=== PATIENT | female | born 1940 | race Caucasian/White ===

== ENCOUNTER → 2017-01-13 | Outpatient (CLI) | payer MEDICARE, OTHER ==
[2017-01-13 14:16] LABS: ABSOLUTE EOSINOPHILS # (AUTO) 0.1 10^3/uL (0.0-0.6); ABSOLUTE LYMPHOCYTES (AUTO) 1.8 10^3/uL (0.5-4.7); ABSOLUTE MONOCYTES (AUTO) 0.8 10^3/uL (0.1-1.4); BASOPHILS % (AUTO) 0.7 % (0-2); EOSINOPHILS % (AUTO) 1.2 % (0-6); HEMATOCRIT 42.2 % (36.0-47.0); HEMOGLOBIN 14.2 g/dL (12.0-15.5); HGB HCT DIFFERENCE 0.4; LYMPHOCYTES % (AUTO) 26.6 % (13-45); MEAN CORPUSCULAR HEMOGLOBIN 32.8 pg (27.0-33.4); MEAN CORPUSCULAR HGB CONC 33.6 g/dL (32.0-36.0); MEAN CORPUSCULAR VOLUME 98 fl (80-97); MONOCYTES % (AUTO) 11.4 % (3-13); RED BLOOD COUNT 4.32 10^6/uL (3.72-5.28); RED CELL DISTRIBUTION WIDTH 13.5 % (11.5-14.0); SEGMENTED NEUTROPHILS % (AUTO) 60.1 % (42-78); WHITE BLOOD COUNT 6.6 10^3/uL (4.0-10.5)
[2017-01-13 14:34] LABS: ANION GAP 10 (5-19); BLOOD UREA NITROGEN 15 mg/dL (7-20); CALCIUM 9.5 mg/dL (8.4-10.2); CARBON DIOXIDE 26 mmol/L (22-30); CHLORIDE 103 mmol/L (98-107); CREATININE RESULT 0.96 mg/dL (0.52-1.25); GLUCOSE 107 mg/dL (75-110); MAGNESIUM 1.7 mg/dL (1.6-2.3); POTASSIUM 4.4 mmol/L (3.6-5.0); SODIUM 138.7 mmol/L (137-145)
[2017-01-13 14:47] LABS: PROTHROMBIN TIME 16.2 SEC (11.4-15.4)
== END ==
LOC: OD 13:46
PROVIDERS: ATTEND Internal Medicine Clinical Cardiac Electrophysiology
DX: R06.02 Shortness of breath (principal)
CPT/HCPCS: 36415; 80048; 83735; 85025; 85610

== ENCOUNTER → 2017-04-27 | Outpatient (CLI) | payer MEDICARE, OTHER ==
[~2017-04-27] MED LIST: AMINOPHYLLINE INJ/PF 250 MG/10 ML SDV IV ONE; REGADENOSON INJ 0.4 MG/5 ML DISP.SYRIN IV ONE
--- NOTE | 2017-04-27 20:26 | DRAGON STRESS TEST REPORT ---
INTRAVENOUS LEXISCAN CARDIOLITE STRESS TEST USING SINGLE PHOTON EMMISION COMPUTERIZED TOMOGRAPHIC. DATE OF PROCEDURE: April 27, 2017 INDICATION : Atrial fibrillation CARDIAC RISK FACTORS: Hypertension RESTING EKG: Sinus rhythm, no baseline ST segment changes noted. STRESS EKG: No significant changes noted with LexiScan bolus. Increased APCs were noted. REASON FOR TERMINATION: Protocol. PROCEDURE REPORT: Baseline heart rate 66 beats per minute with blood pressure of 115/60. Patient had no significant complaints. Heart rate at 2 minutes post bolus 70 with a blood pressure of 128/56. 3 minutes post bolus heart rate 71 with blood pressure of 118/61. No significant EKG changes were noted. Patient had no significant complaints during the procedure or postprocedure. Patient injected with Aminophyllin 75 mg at 3 minutes or later after Lexiscan bolus. CONCLUSIONS: Normal EKG and hemodynamic response to IV LexiScan. NUCLEAR DATA: At rest the patient was given 13.73 millicuries of technetium 99 sestamibi injected intravenously. As per protocol rest gated SPECT images were obtained. Subsequently the patient was given intravenous LexiScan at a dose of 0.4 mg in 5 mL intravenously, followed by flush with normal saline. Subsequently the stress dose of 44.5 millicuries of technetium 99 sestamibi was injected intravenously. As per protocol stress gated images were obtained. NUCLEAR INTERPRETATION: Both raw and processed data were used for interpretation. Visual, qualitative, computer-generated quantitative data was used. There was good myocardial uptake of technetium compound. Motion artifact and soft tissue attenuations were noted. Increased visceral uptake was noted. No definitive areas of transient perfusion defect noted. No definitive areas of fixed perfusion defect or scars noted. EKG gated imaging showed LV EF at 64 %, rest and stress gated EF similar visually. T. I D. ratio was 1.28. Lung heart ratio noted to be within normal limits 0.30. No significant extracardiac and abnormal radiotracer activities were noted. IMPRESSION: Also refer to comments under nuclear interpretation. Also test results needs to be interpreted in the context of pretest probability. 1. There is no definitive scintigraphic evidence of LexiScan induced myocardial ischemia. 2. There is no definitive scintigraphic evidence of myocardial infarction/scar. 3. EKG gated imaging shows left ejection fraction of approximately 64 %. 4. Borderline to mild transient ischemic dilatation noted. Clinical significant in the absence of perfusion defect is not known. Recent literature review suggests no significant increased cardiovascular event rate but older literature suggests that this could indicate balanced ischemia. 5. Clinical correlation requested as occasionally single vessel disease or balanced ischemia could be missed. In approximately 10% of the cases Lexiscan may not cause adequate vasodilatory stress. RECOMMENDATIONS: Aggressive risk factor modification, medical therapy. Clinical correlation with echocardiogram derived ejection fraction. Inability to exercise by itself can lead to increased cardiovascular event risks. Deanne Browne M.D., [facility] [employer] relay assembler, Board certified in cardiovascular diseases, Nuclear cardiology, Echocardiography Cardiac CT and cardiac MRI Ph. [phone] [facility]
== END ==
LOC: RAD 07:52
PROVIDERS: ATTEND Internal Medicine Clinical Cardiac Electrophysiology
DX: I48.1 Persistent atrial fibrillation (principal); I10 Essential (primary) hypertension
CPT/HCPCS: 93017; 78452; A9500; J2785; J0280; Q9969

== ENCOUNTER → 2017-11-09 | Outpatient (CLI) | payer MEDICARE, OTHER ==
[2017-11-09 12:00] LABS: BLOOD UREA NITROGEN 14 mg/dL (7-20)
== END ==
LOC: OD 10:23
PROVIDERS: ATTEND Internal Medicine
DX: Z01.812 Encounter for preprocedural laboratory examination (principal); R10.31 Right lower quadrant pain
CPT/HCPCS: 36415; 82565; 84520

== ENCOUNTER → 2017-11-10 | Outpatient (CLI) | payer MEDICARE, OTHER ==
--- NOTE | 2017-11-10 14:52 | RADIOLOGY REPORT (SQ) ---
EXAM DESCRIPTION: CT ABD/PELVIS WITH IV ONLY COMPLETED DATE/TIME: 11/10/2017 2:40 pm REASON FOR STUDY: RLQ PAIN (R10.31) R10.31 RIGHT LOWER QUADRANT PAIN COMPARISON: None. TECHNIQUE: CT scan of the abdomen and pelvis performed using helical scanning technique with dynamic intravenous contrast injection. No oral contrast. Images reviewed with lung, soft tissue, and bone windows. Reconstructed coronal and sagittal MPR images reviewed. Delayed images for evaluation of the urinary system also acquired. All images stored on PACS. All CT scanners at this facility use dose modulation, iterative reconstruction, and/or weight based d osing when appropriate to reduce radiation dose to as low as reasonably achievable (ALARA). [facility]: Dose Right [facility]: CareDose [facility]: Dose Right [facility]: Teradose 4D [facility]: Dsg.nr CONTRAST TYPE AND DOSE: contrast/concentration: Isovue 370.00 mg/ml; Total Contrast Delivered: 99.0 ml; Total Saline Delivered: 72.0 ml RENAL FUNCTION: Creatinine 0.86 RADIATION DOSE: CT Rad equipment meets quality standard of care and radiation dose reduction techniq ues were employed. CTDIvol: 13.1 - 13.4 mGy. DLP: 1405 mGy-cm.. LIMITATIONS: Hip replacements cause streak artifact, largely obscuring the pelvis. FINDINGS: LOWER CHEST: No significant findings. No nodules or infiltrates. LIVER: Normal size. No masses. No dilated ducts. SPLEEN: Normal size. No focal lesions. PANCREAS: No masses. No significant calcifications. No adjacent inflammation or peripancreatic fluid collections. Pancreatic duct not dilated. GALLBLADDER: No identified stones by CT criteria. No inflammatory changes to suggest cholecystitis. ADRENAL GLANDS: No significant masses or asymmetry. RIGHT KIDNEY AND URETER: No solid masses. No significant calcification. No hydronephrosis or hydroure ter. LEFT KIDNEY AND URETER: No solid masses. No significant calcification. No hydronephrosis or hydrouret er. AORTA AND VESSELS: Normal caliber aorta with patent major arterial branches. No venous clot. RETROPERITONEUM: Several subcentimeter upper retroperitoneal lymph nodes. No enlarged nodes. BOWEL AND PERITONEAL CAVITY: Diverticulosis throughout the descending colon and sigmoid colon. No ac tive inflammatory changes as assessed. Limited evaluation of the pelvis, as described below. No asc ites or abnormal gas detected. APPENDIX: Normal. PELVIS: Bilateral hip replacements with associated dense streak artifact largely obscures the pelvis. Bladder as a result is not seen. A portion of the sigmoid colon is not seen. No gross pelvic mass or fluid. ABDOMINAL WALL: No masses. No hernias. BONES: No significant or acute findings. OTHER: No other significant finding. IMPRESSION: 1. Limited evaluation of the pelvis. 2. No acute or suspicious abdominopelvic abnorma lity. No evidence of urinary obstruction or inflammatory bowel disease. Note is made of fairly exte nsive distal colonic diverticular disease. TECHNICAL DOCUMENTATION: JOB ID: [id number] Quality ID # [id number]: Final reports with documentation of one or more dose reduction techniques (e.g., Au tomated exposure control, adjustment of the mA and/or kV according to patient size, use of iterative reconstruction technique) 2010 [employer]- All Rights Reserved
== END ==
LOC: RAD 13:57
PROVIDERS: ATTEND Internal Medicine
DX: R10.31 Right lower quadrant pain (principal)
CPT/HCPCS: 74177

== ENCOUNTER → 2018-05-25 | Outpatient (CLI) | payer MEDICARE, OTHER ==
[2018-05-25 08:17] LABS: ABSOLUTE EOSINOPHILS # (AUTO) 0.2 10^3/uL (0.0-0.6); ABSOLUTE LYMPHOCYTES (AUTO) 1.9 10^3/uL (0.5-4.7); ABSOLUTE MONOCYTES (AUTO) 0.7 10^3/uL (0.1-1.4); ABSOLUTE NEUT (AUTO) 3.6 10^3/uL (1.7-8.2); BASOPHILS % (AUTO) 0.6 % (0-2); EOSINOPHILS % (AUTO) 2.5 % (0-6); HEMATOCRIT 40.6 % (36.0-47.0); LYMPHOCYTES % (AUTO) 29.8 % (13-45); MEAN CORPUSCULAR HEMOGLOBIN 33.2 pg (27.0-33.4); MEAN CORPUSCULAR HGB CONC 34.5 g/dL (32.0-36.0); MEAN CORPUSCULAR VOLUME 96 fl (80-97); MONOCYTES % (AUTO) 10.3 % (3-13); PLATELET COUNT 190 10^3/uL (150-450); RED BLOOD COUNT 4.22 10^6/uL (3.72-5.28); RED CELL DISTRIBUTION WIDTH 13.2 % (11.5-14.0); SEGMENTED NEUTROPHILS % (AUTO) 56.8 % (42-78); TOTAL CELLS COUNTED % (AUTO) 100 %; WHITE BLOOD COUNT 6.4 10^3/uL (4.0-10.5)
[2018-05-25 08:43] LABS: ALANINE AMINOTRANSFERASE 27 U/L (9-52); ALBUMIN 4.2 g/dL (3.5-5.0); ALKALINE PHOSPHATASE 43 U/L (38-126); ANION GAP 11 (5-19); ASPARTATE AMINO TRANSFERASE 26 U/L (14-36); BILIRUBIN,DIRECT 0.3 mg/dL (0.0-0.4); BILIRUBIN,TOTAL 1.2 mg/dL (0.2-1.3); BLOOD UREA NITROGEN 10 mg/dL (7-20); CALCIUM 9.2 mg/dL (8.4-10.2); CARBON DIOXIDE 27 mmol/L (22-30); CHLORIDE 106 mmol/L (98-107); CHOLESTEROL 143.14 mg/dL (0-200); GLUCOSE 88 mg/dL (75-110); POTASSIUM 4.7 mmol/L (3.6-5.0); TOTAL PROTEIN 6.4 g/dL (6.3-8.2); TRIGLYCERIDES 76 mg/dL (<150)
[2018-05-25 09:39] LABS: DIRECT LDL < 30 mg/dL (<100)
== END ==
LOC: OD 07:11
PROVIDERS: ATTEND Internal Medicine
DX: I25.10 Atherosclerotic heart disease of native coronary artery without angina pectoris (principal); E78.5 Hyperlipidemia, unspecified; E53.8 Deficiency of other specified B group vitamins; E03.9 Hypothyroidism, unspecified; I48.91 Unspecified atrial fibrillation
CPT/HCPCS: 36415; 80053; 80061; 82607; 84443; 85025; 86255

== ENCOUNTER → 2019-02-04 | Outpatient (CLI) | payer MEDICARE, OTHER | LOC: OD 10:15 | PROVIDERS: ATTEND Internal Medicine | DX: E03.9 Hypothyroidism, unspecified (principal); E53.8 Deficiency of other specified B group vitamins; E55.9 Vitamin D deficiency, unspecified | CPT/HCPCS: 36415; 82607; 84443 ==

== ENCOUNTER → 2019-03-07 | Day surgery (SDC) | payer MEDICARE, OTHER ==
[~2019-03-07] MED LIST changes: -AMINOPHYLLINE INJ/PF 250 MG/10 ML SDV IV ONE; +BUPIVACAINE HCL 0.5 % INJ/PF 30 ML SDV ONE; +LIDOCAINE 1% INJ-PF (10 MG/ML) 30 ML SDV ONE; -REGADENOSON INJ 0.4 MG/5 ML DISP.SYRIN IV ONE
--- NOTE | 2019-03-07 12:22 | Operative Report ---
PREOPERATIVE DIAGNOSIS: Spondylolisis without myopathy or radiculopathy M47.818// Lumbar Sacral Spondylolisis without myopathy or radiculopathy M47.817 POSTOPERATIVE DIAGNOSIS:Spondylolisis without myopathy or radiculopathy M47.818// Lumbar Sacral Spondylolisis without myopathy or radiculopathy M47.817 PROCEDURE: 1. Radiofrequency Ablation of bilateral L5 dorsal Ramus 2. Sacroiliac Joint Ablation - Lateral Branches of bilateral S1, S2, S3 DATE OF PROCEDURE: March 07, 2019 ANESTHESIA: Local COMPLICATIONS: None CONSENT: A full description of the procedure was provided including benefits as well as possible complications. All questions were answered and informed consent was given and signed. ASA guidelines for fasting were verified prior to sed ation. PROCEDURE IN DETAIL The patient was brought into the fluoroscopy suite and carefully assisted into the prone position on the fluoroscopy table and allowed to adjust to a position of comfort. A grounding pad was placed on the right thigh. The low back and buttocks were widely prepped with a chloraprep solution, allowed to air dry and draped in standard sterile surgical fashion. Local anesthesia was provided by 12 mL of 1 % lidocaine delivered with a 25 g needle. PROCEDURE #1: Radiofrequency Ablation of Dorsal Ramus of the bilateral L5. A 17g 75mm radiofrequency introducer needle was placed to the planned anatomic target, guided with intermittent fluoroscopy with a perpendicular approach, to terminally place at the bilateral sacral ala. The stylets were removed and the radiofrequency probes with a 4mm active tip were then inserted. Needle tip position of the probes were verified in the AP, oblique, and lateral views. At each site, the medial branch nerve was stimulated at 2Hz to a maximum of 1- 2volts determined to finalize safe needle and electrode placement. The patient was awake and responsive during this portion of the procedure. Each target was anesthetized with 2mL of 2 % Sensorcaine anesthesia for lesioning and then each target was lesioned at 80 degrees Celsius for 2 minutes and 30 seconds. Tissue impedences were noted to be between 250 and 500 Ohms. PROCEDURE #2: Radiofrequency Ablation of bilateral S1, S2, S3 Lateral Branches Using the AP fluoroscopic view for visualization of the lateral PSFA as defined by the pre-placed 27-gauge Quincke needles, appropriate skin starting positions were defined. Using the PSFA as a "clock-face", the positions were: S1; bilateral = 1 and 5 oclock S2; bilateral = 1 and 5 oclock S3; bilateral = 3 oclock Using fluoroscopic guidance, a 17g introducer needle was inserted sequentially onto the target positions described above until the introducer tip touched the bony surface of the sacrum. The stylet was withdrawn from the introducer and the radiofrequency probe with a 4 mm active tip was fully inserted into the introducer. A lateral view was obtained for standard reference. At each of the targets, needle placement was verified with the use of multi-planar fluoroscopy. The needle tip position was approximately 7 - 10mm lateral to the PSFA as determined by using an Epsilon ruler. At each site, the lateral branch nerve was stimulated at 2 Hz to a maximum of 1- 2 volts determined to finalize safe needle and electrode placement. The patient was awake and responsive during this portion of the procedure. Each target was anesthetized with 2 mL of 2 % Sensorcaine anesthesia for lesioning and then each target was lesioned at 80 degrees Celsius for 2 minutes and 30 seconds. Tissue impedences were noted to be between 250- 500 Ohms. At the conclusion of the lesioning the needles were removed and bandages placed over the needle placement sites and the patient returned to the supine position on a stretcher and trans ported to the recovery room without hemodynamic, neurologic, or allergic reactions. Fluoroscopic images were printed for hard copy recording and digitally archived. FLUOROSCOPIC INTERPRETATION: Appropriate epidurogram obtained. Appropriate lesioning of the 10 targets noted. POST PROCEDURE EVALUATION: The patient was comfortable in the recovery room. The patient is aware that pain may worsen before remitting and 4 6 weeks may be required prior to the onset of pain relief. IMPRESSION: 1. Technically successful sacral lateral branch, lumbar dorsal ramus for denervation from L5-S3 on the bilateral without complication. 2. RTC in 2 weeks. 3. Estimated Blood Loss: None 4. Fluoroscopy time: 30 seconds
== END ==
LOC: RAD 12:11
PROVIDERS: ATTEND Family Medicine
DX: M47.817 Spondylosis without myelopathy or radiculopathy, lumbosacral region (principal)
CPT/HCPCS: 64635; 64640 ×3; J3490 ×2

== ENCOUNTER → 2019-04-04 | Outpatient (CLI) | payer MEDICARE, OTHER | LOC: OD 09:11 | PROVIDERS: ATTEND Internal Medicine | DX: E03.9 Hypothyroidism, unspecified (principal) | CPT/HCPCS: 36415; 84443 ==

== ENCOUNTER → 2019-04-25 | Outpatient (CLI) | payer MEDICARE, OTHER ==
--- NOTE | 2019-04-25 13:31 | RADIOLOGY REPORT (SQ) ---
EXAM DESCRIPTION: MRI LUMBAR SPINE WITHOUT COMPLETED DATE/TIME: 04/25/2019 11:51 am REASON FOR STUDY: M54.5 LOW BACK PAIN M54.5 LOW BACK PAIN COMPARISON: None. TECHNIQUE: Sagittal and Axial imaging includes T1, T2, STIR and gradient echo sequences. Coronal T2/ HASTE imaging. LIMITATIONS: None. FINDINGS: VISUALIZED UPPER ABDOMEN: Limited evaluation. No acute or suspicious findings suggested. SEGMENTATION: No transitional anatomy. The lowest well-developed disc space is labeled L5-S1. ALIGNMENT: Anatomic. VERTEBRAE: Intact. BONE MARROW: Normal. No marrow replacement or reactive changes. DISC SIGNAL: Disc signal is decreased generally, most prominently at L1-2 and L2-3 and L5-S1. These disc spaces are narrowed. POSTERIOR ELEMENTS: Generally intact. No pars defect evident. HARDWARE: None in the spine. CORD AND CONUS: Normal in size and signal intensity. Conus at the T12-L1 level. SOFT TISSUES: No aortic aneurysm seen. No bulky retroperitoneal adenopathy or mass. No paraspinal mas s or fluid. L1-L2: Mild concentric disc bulging with no central canal or foraminal stenosis. L2-L3: Mild concentric disc bulging with no central canal or foraminal stenosis. There is mild facet and ligament hypertrophy. L3-L4: Mild concentric disc bulging. Facet and ligament hypertrophy. Mild central canal stenosis. No significant foraminal stenosis. L4-L5: Mild concentric disc bulging. Facet and ligament hypertrophy. Mild central canal stenosis. No significant foraminal stenosis. L5-S1: Mild left foraminal disc bulge with no central canal or foraminal stenosis. This appears to m inimally displace the traversing nerve root on the left on image 28 series 6. LOWER THORACIC: Incompletely imaged. No stenosis seen. SACRUM: Visualized upper sacrum intact. OTHER: No other significant findings. IMPRESSION: Disc changes as described. There is mild central canal stenosis at L3-4 and L4-5. Ther e is an eccentric disc bulge to the left at L5-S1 that appears to very slightly displace the traversi ng nerve root. TECHNICAL DOCUMENTATION: JOB ID: [id number] [employer]- All Rights Reserved Reading location - IP/workstation name: [email or web address]
== END ==
LOC: RAD 10:50
PROVIDERS: ATTEND Anesthesiology Pain Medicine
DX: M54.5 Low back pain (principal); M48.061 Spinal stenosis, lumbar region without neurogenic claudication
CPT/HCPCS: 72148

== ENCOUNTER 2019-06-05 16:33 | Emergency (ER) | payer MEDICARE, OTHER ==
[2019-06-05 16:44] VITALS: BP 170/90
--- NOTE | 2019-06-05 16:55 | ER Document Report ---
ED Medical Screen (RME) - General Chief Complaint: Ear Pain Stated Complaint: EAR PAIN Time Seen by Provider: 06/05/19 16:44 Primary Care Provider: IRMA MARION MD [Primary Care Provider] - Follow up as needed Mode of Arrival: Ambulatory Information source: Patient Notes: Patient is an 79-year-old female presented to the emergency department with multiple complaints. Patient reports dizziness and shaking after suffering several weeks worth of left-sided ear pain. Patient reports she was treated with antibiotic drops and meclizine. She states that her ear pain has finally resolved but her equilibrium is off and she cannot stop shaking. Patient denies any history of similar symptoms. Exam: Mild tremor noted to bilateral upper extremities. Patient alert, oriented and speaking in complete sentences. No focal neurological deficits noted. I have greeted and performed a rapid initial assessment of this patient. A comprehensive ED assessment and evaluation of the patient, analysis of test results and completion of the medical decision making process will be conducted by additional ED providers. I have specifically instructed the patient or family members with the patient to immediately return to any nursing staff should anything change in the patient's condition or with their chief complaint. This medical record was dictated with voice recognizing software. There may be grammatical, syntax errors that are unintended. TRAVEL OUTSIDE OF THE [place] IN LAST 30 DAYS: No - Related Data Allergies/Adverse Reactions: No Known Allergies Allergy (Verified 06/05/19 16:41) Physical Exam - Vital signs Vitals: Temp Pulse Resp BP Pulse Ox 98.3 F 105 H 18 170/90 H 97 06/05/19 16:43 06/05/19 16:43 06/05/19 16:43 06/05/19 16:43 06/05/19 16:43 Course - Vital Signs Vital signs: Temp Pulse Resp BP Pulse Ox 98.3 F 105 H 18 170/90 H 97 06/05/19 16:43 06/05/19 16:43 06/05/19 16:43 06/05/19 16:43 06/05/19 16:43 Doctor's Discharge - Discharge Referrals: IRMA MARION MD [Primary Care Provider] - Follow up as needed
[2019-06-05 17:20] LABS: ABSOLUTE BASOPHILS # (AUTO) 0.1 10^3/uL (0.0-0.2); ABSOLUTE LYMPHOCYTES (AUTO) 1.7 10^3/uL (0.5-4.7); ABSOLUTE MONOCYTES (AUTO) 0.7 10^3/uL (0.1-1.4); ABSOLUTE NEUT (AUTO) 3.9 10^3/uL (1.7-8.2); EOSINOPHILS % (AUTO) 0.8 % (0-6); HEMOGLOBIN 13.9 g/dL (12.0-15.5); LYMPHOCYTES % (AUTO) 26.7 % (13-45); MEAN CORPUSCULAR HEMOGLOBIN 33.3 pg (27.0-33.4); MEAN CORPUSCULAR HGB CONC 33.9 g/dL (32.0-36.0); MEAN CORPUSCULAR VOLUME 98 fl (80-97); MONOCYTES % (AUTO) 10.6 % (3-13); PLATELET COUNT 215 10^3/uL (150-450); RED BLOOD COUNT 4.17 10^6/uL (3.72-5.28); RED CELL DISTRIBUTION WIDTH 13.2 % (11.5-14.0); SEGMENTED NEUTROPHILS % (AUTO) 60.9 % (42-78); TOTAL CELLS COUNTED % (AUTO) 100 %; WHITE BLOOD COUNT 6.3 10^3/uL (4.0-10.5)
[2019-06-05 17:32] LABS: APPEARANCE,URINE CLOUDY; BILIRUBIN,URINE NEGATIVE (NEGATIVE); COLOR,URINE YELLOW; GLUCOSE, URINE NEGATIVE (NEGATIVE); KETONES,URINE NEGATIVE (NEGATIVE); LEUKOCYTE ESTERASE,URINE LARGE (NEGATIVE); NITRITE,URINE NEGATIVE (NEGATIVE); PROTEIN,URINE NEGATIVE (NEGATIVE); URINE SPECIFIC GRAVITY 1.015; UROBILINOGEN,URINE NEGATIVE mg/dL (<2.0)
[2019-06-05 17:39] LABS: ALANINE AMINOTRANSFERASE 21 U/L (9-52); ALBUMIN 4.5 g/dL (3.5-5.0); ALKALINE PHOSPHATASE 43 U/L (38-126); ANION GAP 8 (5-19); ASPARTATE AMINO TRANSFERASE 23 U/L (14-36); BILIRUBIN,DIRECT 0.3 mg/dL (0.0-0.4); BLOOD UREA NITROGEN 14 mg/dL (7-20); CALCIUM 9.5 mg/dL (8.4-10.2); CARBON DIOXIDE 28 mmol/L (22-30); CHLORIDE 103 mmol/L (98-107); GLUCOSE 111 mg/dL (75-110); POTASSIUM 4.3 mmol/L (3.6-5.0); SODIUM 138.5 mmol/L (137-145); TOTAL PROTEIN 6.8 g/dL (6.3-8.2)
--- NOTE | 2019-06-05 19:01 | ER Document Report ---
Doctor's Note Notes: 06/05/19 19:00 I did supervisor picking crew the patient's chart, and reviewed her chief complaint, prior visits, and current lab work. I did order a urine culture on what looks to be a urinary tract infection. When I went in the room, I learned that she had eloped. I instructed the charge nurse to contact her and let her know that she does have a urinary tract infection and needs to either return, or see her primary care provider for treatment.
== END 2019-06-05 19:02 | disposition left against medical advice (07) ==
LOC: ER 16:33
DX: H92.02 Otalgia, left ear (principal); R42 Dizziness and giddiness
CPT/HCPCS: 36415; 80053; 81001; 85025; 87086; 87088; 87186; 99281

== ENCOUNTER 2019-06-06 10:18 | Emergency (ER) | payer MEDICARE, OTHER ==
--- NOTE | 2019-06-06 10:39 | ER Document Report ---
ED Medical Screen (RME) - General Chief Complaint: Ear Pain Stated Complaint: EAR PAIN Time Seen by Provider: 06/06/19 10:33 Primary Care Provider: IRMA MARION MD [Primary Care Provider] - Follow up as needed Mode of Arrival: Ambulatory Information source: Patient Notes: 79-year-old female presents to ED for complaint of ear infection for 3 weeks. She states she has notified the ears nose and throat doctor and they said she cannot get in for a while. Patient states she has a history of A. fib hypothyroid and ear infections. She states she has been wobbly for a while and has been falling for the last 3 weeks. She states she was here last night and had some blood work done but never did see a provider they waited and waited and waited and then went home. Patient has had a cardiac cath stents and a hip replacement. I have greeted and performed a rapid initial assessment of this patient. A comprehensive ED assessment and evaluation of the patient, analysis of test results and completion of medical decision making process will be conducted by an additional ED providers. Dictation of this chart was performed using voice recognition software; therefore, there may be some unintended grammatical errors. TRAVEL OUTSIDE OF THE [place] IN LAST 30 DAYS: No - Related Data Allergies/Adverse Reactions: No Known Allergies Allergy (Verified 06/06/19 10:20) Past Medical History - Social History Frequency of alcohol use: Heavy Drug Abuse: None - Past Medical History Cardiac Medical History: Reports: Hx Atrial Fibrillation, Hx Hypercholesterolemia Renal/ Medical History: Denies: Hx Peritoneal Dialysis Past Surgical History: Reports: Hx Cardiac Catheterization - stents, Hx Orthopedic Surgery - luzmaria hip replacements/knee/ankle Physical Exam - Vital signs Vitals: Temp Pulse Resp BP Pulse Ox 97.8 F 63 18 146/85 H 95 06/06/19 10:22 06/06/19 10:22 06/06/19 10:22 06/06/19 10:22 06/06/19 10:22 Course - Vital Signs Vital signs: Temp Pulse Resp BP Pulse Ox 97.8 F 63 18 146/85 H 95 06/06/19 10:22 06/06/19 10:22 06/06/19 10:22 06/06/19 10:22 06/06/19 10:22 Doctor's Discharge - Discharge Referrals: IRMA MARION MD [Primary Care Provider] - Follow up as needed
[2019-06-06] MEDS ORDERED: MECLIZINE HCL 25 MG TABLET PO ONE (11:06)
[2019-06-06 11:11] LABS: ABSOLUTE EOSINOPHILS # (AUTO) 0.1 10^3/uL (0.0-0.6); ABSOLUTE LYMPHOCYTES (AUTO) 2.2 10^3/uL (0.5-4.7); ABSOLUTE MONOCYTES (AUTO) 0.7 10^3/uL (0.1-1.4); ABSOLUTE NEUT (AUTO) 3.6 10^3/uL (1.7-8.2); BASOPHILS % (AUTO) 0.6 % (0-2); HEMATOCRIT 43.1 % (36.0-47.0); HEMOGLOBIN 14.3 g/dL (12.0-15.5); LYMPHOCYTES % (AUTO) 33.9 % (13-45); MEAN CORPUSCULAR HEMOGLOBIN 33.1 pg (27.0-33.4); MEAN CORPUSCULAR HGB CONC 33.2 g/dL (32.0-36.0); MEAN CORPUSCULAR VOLUME 100 fl (80-97); MONOCYTES % (AUTO) 10.3 % (3-13); PLATELET COUNT 227 10^3/uL (150-450); RED BLOOD COUNT 4.32 10^6/uL (3.72-5.28); RED CELL DISTRIBUTION WIDTH 13.5 % (11.5-14.0); SEGMENTED NEUTROPHILS % (AUTO) 54.2 % (42-78); TOTAL CELLS COUNTED % (AUTO) 100 %; WHITE BLOOD COUNT 6.6 10^3/uL (4.0-10.5)
[2019-06-06 11:15] LABS: INTERNATIONAL RATION (INR) 1.93; PROTHROMBIN TIME 22.4 SEC (11.4-15.4)
--- NOTE | 2019-06-06 11:19 | RADIOLOGY REPORT (SQ) ---
EXAM DESCRIPTION: CT HEAD WITHOUT COMPLETED DATE/TIME: 06/06/2019 10:58 am REASON FOR STUDY: head pain falling down COMPARISON: MRI brain dated 05/05/2016 TECHNIQUE: Axial images acquired through the brain without intravenous contrast. Images reviewed wi th bone, brain and subdural windows. Additional sagittal and coronal reconstructions were generated. Images stored on PACS. All CT scanners at this facility use dose modulation, iterative reconstruction, and/or weight based d osing when appropriate to reduce radiation dose to as low as reasonably achievable (ALARA). [facility]: Dose Right [facility]: CareDose [facility]: Dose Right [facility]: Teradose 4D [facility]: [place] & [place] RADIATION DOSE: CT Rad equipment meets quality standard of care and radiation dose reduction techniq ues were employed. CTDIvol: 53.2 mGy. DLP: 1070 mGy-cm. mGy. LIMITATIONS: None. FINDINGS: VENTRICLES: Normal size and contour. CEREBRUM: Focal right frontal anterior falx meningioma is again noted and unchanged. No hemorrhage. No midline shift or focal mass effect. No evidence of acute infarct. Normal hinton/white matter diffe rentiation. No areas of low density in the white matter. CEREBELLUM: No masses. No hemorrhage. No alteration of density. No evidence for acute infarction. EXTRAAXIAL SPACES: No fluid collections. No masses. ORBITS AND GLOBE: No intra- or extraconal masses. Normal contour of globe without masses. CALVARIUM: No fracture. PARANASAL SINUSES: No fluid or mucosal thickening. SOFT TISSUES: No mass or hematoma. OTHER: No other significant finding. IMPRESSION: Stable right frontal anterior falx meningioma. No acute intracranial event. EVIDENCE OF ACUTE STROKE: NO. COMMENT: Quality ID # [id number]: Final reports with documentation of one or more dose reduction techniques (e.g., Automated exposure control, adjustment of the mA and/or kV according to patient size, use of iterative reconstruction technique) TECHNICAL DOCUMENTATION: JOB ID: [id number] [employer]- All Rights Reserved Reading location - IP/workstation name: [email or web address]
[2019-06-06 11:28] LABS: ALANINE AMINOTRANSFERASE 17 U/L (9-52); ALBUMIN 4.4 g/dL (3.5-5.0); ALCOHOL < 10 mg/dL (NONE DETECTED); ALKALINE PHOSPHATASE 45 U/L (38-126); ANION GAP 9 (5-19); ASPARTATE AMINO TRANSFERASE 25 U/L (14-36); BILIRUBIN,DIRECT 0.3 mg/dL (0.0-0.4); BILIRUBIN,TOTAL 1.1 mg/dL (0.2-1.3); BLOOD UREA NITROGEN 14 mg/dL (7-20); CALCIUM 9.6 mg/dL (8.4-10.2); CARBON DIOXIDE 27 mmol/L (22-30); CHLORIDE 103 mmol/L (98-107); GLUCOSE 104 mg/dL (75-110); LIPASE 95.7 U/L (23-300); POTASSIUM 4.2 mmol/L (3.6-5.0); SODIUM 138.5 mmol/L (137-145); TOTAL PROTEIN 6.5 g/dL (6.3-8.2)
[2019-06-06 11:34] LABS: APPEARANCE,URINE TURBID; BILIRUBIN,URINE NEGATIVE (NEGATIVE); CALCIUM OXALATE CRYSTALS,URINE FEW /HPF; COLOR,URINE YELLOW; GLUCOSE, URINE NEGATIVE (NEGATIVE); KETONES,URINE TRACE mg/dL (NEGATIVE); LEUKOCYTE ESTERASE,URINE MODERATE (NEGATIVE); NITRITE,URINE NEGATIVE (NEGATIVE); PROTEIN,URINE NEGATIVE (NEGATIVE); URINE SPECIFIC GRAVITY 1.018
[2019-06-06 11:44] LABS: FREE T3 2.98 pg/mL (2.77-5.27); FREE T4 (FREE THYROXINE) 2.13 ng/dL (0.78-2.19)
[2019-06-06 11:57] LABS: THYROID STIMULATING HORMONE 2.15 uIU/mL (0.47-4.68)
[2019-06-06] MEDS ORDERED: SULFAMETHOXAZOLE/TRIMETHOPRIM 800-160 MG TABLET PO ONE (12:51)
[2019-06-06 13:00] VITALS: BP 151/65
--- NOTE | 2019-06-06 19:05 | ER Document Report ---
Entered by LIZZIE LIZARRAGA SCRIBE 06/06/19 1247 Acting as scribe for:ART VILLALTA DO ED General - General Chief Complaint: Ear Pain Stated Complaint: EAR PAIN Time Seen by Provider: 06/06/19 10:33 Primary Care Provider: IRMA MARION MD [NO LOCAL MD] - Follow up as needed Mode of Arrival: Ambulatory Information source: Patient Notes: 79-year-old female who presents to the emergency department today with complaints of x3 syncopal events over the last x3 weeks, although none have been in the last few days. Patient was seen last night and was found to have eloped, she was called and instructed to return after her urine came back showing an infection. Patient states that during all x3 of the syncopal events she had just stood up from a sitting position prior to passing out. Patient states she felt like she had an ear infection, she saw her primary care physician Declan Sevilla MD who started her on meclizine and [id number] eardrops. Patient states that her removed a large cerumen plug and her symptoms of her "ear infection" went away. Patient states she did hit her head during one of these episodes and she is on Xarelto. Patient denies any chest pain, shortness of breath, numbness, tingling, nausea, vomiting, dizziness, urinary symptoms, fevers, headaches, sore throat, or stroke-like symptoms. TRAVEL OUTSIDE OF THE [place] IN LAST 30 DAYS: No - Related Data Allergies/Adverse Reactions: No Known Allergies Allergy (Verified 06/06/19 10:20) Past Medical History - General Information source: Patient - Social History Smoking Status: Never Smoker Frequency of alcohol use: Heavy Drug Abuse: None Lives with: Family Family History: Reviewed & Not Pertinent Patient has suicidal ideation: No Patient has homicidal ideation: No - Past Medical History Cardiac Medical History: Reports: Hx Atrial Fibrillation, Hx Hypercholesterolemia Past Surgical History: Reports: Hx Cardiac Catheterization - stents, Hx Orthoped ic Surgery - luzmaria hip replacements/knee/ankle Review of Systems - Review of Systems Constitutional: denies: Fever EENT: See HPI, Nose congestion. denies: Throat pain Cardiovascular: See HPI, Syncope. denies: Chest pain, Dizziness Respiratory: denies: Short of breath Gastrointestinal: denies: Nausea, Vomiting Genitourinary: denies: Dysuria Female Genitourinary: No symptoms reported Musculoskeletal: No symptoms reported Skin: No symptoms reported Hematologic/Lymphatic: No symptoms reported Neurological/Psychological: denies: Headaches, Numbness, Tingling -: Yes All other systems reviewed and negative Physical Exam - Vital signs Vitals: Temp Pulse Resp BP Pulse Ox 97.8 F 63 18 146/85 H 95 06/06/19 10:22 06/06/19 10:22 06/06/19 10:22 06/06/19 10:22 06/06/19 10:22 - Notes Notes: PHYSICAL EXAM GENERAL: Alert, interacts well. No acute distress. HEAD: Normocephalic, atraumatic. EYES: Pupils equal, round, and reactive to light. Extraocular movements intact. ENT: Oral mucosa moist, tongue midline. TMs are injected and slightly cloudy bilaterally. No cerumen. NECK: Full range of motion. Supple. Trachea midline. LUNGS: Clear to auscultation bilaterally, no wheezes, rales, or rhonchi. No respiratory distress. HEART: Regular rate and rhythm. No murmurs, gallops, or rubs. ABDOMEN: Soft, non-tender. Non-distended. Bowel sounds present in all 4 quadrants. No guarding, rigidity, or rebound. EXTREMITIES: Moves all 4 extremities spontaneously. No edema, radial and dorsalis pedis pulses 2/4 bilaterally. No cyanosis. NEUROLOGICAL: Alert and oriented x3. Normal speech. Biceps and patellar DTRs 2+ bilaterally. 5/5 great toe raising strength bilaterally. PSYCH: Normal affect, normal mood. SKIN: Warm, dry, normal turgor. No rashes or lesions noted. Course - Re-evaluation Re-evalutation: 06/06/19 12:47 CBC unremarkable, coags prolonged consistent with Eliquis, CMP unremarkable, thyroid function normal, urinalysis shows trace ketones, small blood and moderate leukocyte esterase, greater than 182 WBCs, 3+ bacteria, alcohol level is undetectable, CT scan of the head is stable. Urinalysis is worsened compared to yesterday. Patient is no longer having any syncopal episodes, has not had one for 2 weeks. Patient is neurologically intact at this time. Suspect that the patient is actually having orthostatic syncope related to the UTI. Patient is instructed to drink plenty fluids, take antibiotics and follow-up with primary care physician as an outpatient. Has not had true dizziness, Antivert did not help to prevent her orthostatic syncope. Will not be given any more Antivert. Discharged home. - Vital Signs Vital signs: Temp Pulse Resp BP Pulse Ox 97.9 F 50 L 18 151/65 H 95 06/06/19 12:59 06/06/19 12:59 06/06/19 12:59 06/06/19 12:59 06/06/19 12:59 - Laboratory Result Diagrams: 06/06/19 10:45 06/06/19 10:45 Laboratory results interpreted by me: 06/06/19 06/06/19 06/06/19 10:45 10:45 10:45 MCV 100 H PT 22.4 H APTT 37.0 H Est GFR (Non-Af Amer) 53 L Urine Ketones Urine Blood Urine Urobilinogen Ur Leukocyte Esterase 06/06/19 10:45 MCV PT APTT Est GFR (Non-Af Amer) Urine Ketones TRACE H Urine Blood SMALL H Urine Urobilinogen 2.0 H Ur Leukocyte Esterase MODERATE H Discharge - Discharge Clinical Impression: Orthostatic syncope Urinary tract infection Qualifiers: Urinary tract infection type: acute cystitis Hematuria presence: without hematuria Qualified Code(s): N30.00 - Acute cystitis without hematuria Condition: Stable Disposition: HOME, SELF-CARE Additional Instructions: Urinary Tract Infection Your evaluation indicates that you have a urinary tract infection. This is due to germs growing in the bladder. This is a common problem. This infection usually responds quickly to antibiotics. Your antibiotic should be taken exactly as prescribed. Drink plenty of fluids -- three to four quarts a day. Occasionally, a bladder anesthetic will be prescribed to help stop the feeling of urgency until the antibiotic has a chance to clear the infection. This may cause your urine to be dark orange. Certain urine infections require a culture. If the doctor obtained a culture, the results will be back in two days. You should call to see if a change in treatment is needed. A repeat urinalysis after you finish treatment is often recommended. The physician will let you know if further testing is required. Call the doctor if you develop fever, chills, flank pain, inability to urinate, or blood in the urine. Orthostatic Hypotension You have orthostatic hypotension. Your blood pressure goes down when you stand up. Symptoms can include dizziness, transient loss of vision, ringing in the ears, nausea, and fainting. At this time, there's no evidence of a serious problem requiring hospitalization. Orthostatic hypotension can be caused by dehydration, poor nutrition, over- exercise, or medication. For some people, orthostatic hypotension is an ongoing problem, and no cause can be found. I believe that your passing out is related to orthostatic hypotension which is related to your urinary tract infection. When you feel the first symptoms suggesting you might faint, sit or squat down as quickly as you can. If symptoms don't go away quickly, lie down. Call the doctor or return if you are worsening or if new symptoms develop. Prescriptions: Sulfamethoxazole/Trimethoprim [Bactrim Ds Tablet] 1 each PO BID #14 tablet Referrals: IRMA MARION MD [NO LOCAL MD] - Follow up as needed I personally performed the services described in the documentation, reviewed and edited the documentation which was dictated to the scribe in my presence, and it accurately records my words and actions.
== END 2019-06-06 13:03 | disposition home or self-care (01) ==
LOC: ER 10:18
DX: R55 Syncope and collapse (principal); N30.00 Acute cystitis without hematuria; R09.81 Nasal congestion; I48.91 Unspecified atrial fibrillation; Z79.02 Long term (current) use of antithrombotics/antiplatelets; Z95.5 Presence of coronary angioplasty implant and graft
CPT/HCPCS: 99283; 36415; 87086; 84439; 80307; 83690; 84443; 85025; 85610; 85730; 87088; 80053; 81001; 84484; 87186; 84481; 70450; A9270 ×2

== ENCOUNTER 2019-08-05 14:21 | Emergency (ER) | payer MEDICARE, OTHER ==
--- NOTE | 2019-08-05 14:44 | EKG REPORT ---
SEVERITY:- ABNORMAL ECG - ATRIAL FIBRILLATION : Confirmed by: Lurdes Rodrigues MD 05-Aug-2019 14:44:15
--- NOTE | 2019-08-05 14:53 | ER Document Report ---
ED Medical Screen (RME) - General Chief Complaint: Irregular Pulse Stated Complaint: RAPID HEART RATE Time Seen by Provider: 08/05/19 14:50 Primary Care Provider: CORTEZ JAMES MD [Primary Care Provider] - Follow up as needed Mode of Arrival: Wheelchair Information source: Patient Notes: 79-year-old female presents the ED for irregular heartbeat. She was at the doctor's office and her pulse was in the 130s so they sent her over to the emergency room. She does have a history of A. fib but she never feels it. He states she does have a ear infection which is making her have a small balance problem but she is not lightheaded and dizzy otherwise. I have greeted and performed a rapid initial assessment of this patient. A comprehensive ED assessment and evaluation of the patient, analysis of test results and completion of medical decision making process will be conducted by an additional ED providers. TRAVEL OUTSIDE OF THE [place] IN LAST 30 DAYS: No - Related Data Allergies/Adverse Reactions: No Known Allergies Allergy (Verified 08/05/19 14:24) Past Medical History - Past Medical History Cardiac Medical History: Reports: Hx Atrial Fibrillation, Hx Hypercholesterolemia Renal/ Medical History: Denies: Hx Peritoneal Dialysis Past Surgical History: Reports: Hx Cardiac Catheterization - stents, Hx Orthopedic Surgery - luzmaria hip replacements/knee/ankle Physical Exam - Vital signs Vitals: Temp Pulse Resp BP Pulse Ox 98.2 F 138 H 15 141/79 H 96 08/05/19 14:47 08/05/19 14:47 08/05/19 14:47 08/05/19 14:47 08/05/19 14:47 Course - Vital Signs Vital signs: Temp Pulse Resp BP Pulse Ox 98.2 F 138 H 15 141/79 H 96 08/05/19 14:47 08/05/19 14:47 08/05/19 14:47 08/05/19 14:47 08/05/19 14:47 Doctor's Discharge - Discharge Referrals: CORTEZ JAMES MD [Primary Care Provider] - Follow up as needed
[2019-08-05] MEDS ORDERED: METOPROLOL TARTRATE PF/INJ 5 MG/5 ML SDV IV ONE (15:41)
[2019-08-05 15:44] LABS: ABSOLUTE LYMPHOCYTES (AUTO) 1.1 10^3/uL (0.5-4.7); ABSOLUTE MONOCYTES (AUTO) 0.7 10^3/uL (0.1-1.4); ABSOLUTE NEUT (AUTO) 4.4 10^3/uL (1.7-8.2); BASOPHILS % (AUTO) 0.4 % (0-2); EOSINOPHILS % (AUTO) 0.2 % (0-6); HEMATOCRIT 38.3 % (36.0-47.0); HEMOGLOBIN 13.1 g/dL (12.0-15.5); LYMPHOCYTES % (AUTO) 18.2 % (13-45); MEAN CORPUSCULAR HEMOGLOBIN 33.9 pg (27.0-33.4); MEAN CORPUSCULAR HGB CONC 34.1 g/dL (32.0-36.0); MEAN CORPUSCULAR VOLUME 100 fl (80-97); MONOCYTES % (AUTO) 10.5 % (3-13); PLATELET COUNT 184 10^3/uL (150-450); RED BLOOD COUNT 3.85 10^6/uL (3.72-5.28); RED CELL DISTRIBUTION WIDTH 15.2 % (11.5-14.0); SEGMENTED NEUTROPHILS % (AUTO) 70.7 % (42-78); TOTAL CELLS COUNTED % (AUTO) 100 %; WHITE BLOOD COUNT 6.3 10^3/uL (4.0-10.5)
[2019-08-05 15:51] LABS: ALBUMIN 4.1 g/dL (3.5-5.0); ALKALINE PHOSPHATASE 40 U/L (38-126); ANION GAP 8 (5-19); ASPARTATE AMINO TRANSFERASE 28 U/L (14-36); BILIRUBIN,DIRECT 0.2 mg/dL (0.0-0.4); BLOOD UREA NITROGEN 16 mg/dL (7-20); CALCIUM 9.2 mg/dL (8.4-10.2); CARBON DIOXIDE 27 mmol/L (22-30); CHLORIDE 101 mmol/L (98-107); CREATINE KINASE 56 U/L (30-135); GLUCOSE 98 mg/dL (75-110); POTASSIUM 4.6 mmol/L (3.6-5.0); TOTAL PROTEIN 6.1 g/dL (6.3-8.2)
[2019-08-05 16:03] LABS: CREATINE KINASE MB 1.55 ng/mL (<4.55)
[2019-08-05 16:09] LABS: TROPONIN I < 0.012 ng/mL
--- NOTE | 2019-08-05 19:35 | ER Document Report ---
ED Cardiac - General Chief Complaint: Irregular Pulse Stated Complaint: RAPID HEART RATE Time Seen by Provider: 08/05/19 14:50 Primary Care Provider: CORTEZ JAMES MD [Primary Care Provider] - Follow up as needed Mode of Arrival: Wheelchair TRAVEL OUTSIDE OF THE [place] IN LAST 30 DAYS: No - HPI Notes: Patient presents with elevated heart rate. Patient states she has no symptoms and does not want to be here. Patient states that she was forced to come here by her and her doctor. She denies any chest pain or shortness of breath. No palpitations. No current dizziness. She states she saw her doctor today for dizziness that she has had for several months now but she believes that is due to her ear. Patient was noted to have an elevated heart rate with atrial fibrillation at her primary doctor. She does have a history of atrial f ibrillation and is on amiodarone. She was recently on a beta-teri but this was discontinued. Patient is also on Xarelto. Patient was essentially sent here for A. fib with rapid ventricular response for which she was asymptomatic. Symptoms are extremely mild to none. They have been constant. Is no known radiation symptoms. Nothing makes it better or worse. Patient does have a history of some early dementia. However patient has excellent short-term memory for me throughout her ED stay and I feel she is a reasonable historian. - Related Data Allergies/Adverse Reactions: No Known Allergies Allergy (Verified 08/05/19 14:24) Past Medical History - General Information source: Patient - Social History Smoking Status: Never Smoker Frequency of alcohol use: None Drug Abuse: None Family History: Reviewed & Not Pertinent Patient has suicidal ideation: No Patient has homicidal ideation: No - Past Medical History Cardiac Medical History: Reports: Hx Atrial Fibrillation, Hx Hypercholesterolemia Renal/ Medical History: Denies: Hx Peritoneal Dialysis Past Surgical History: Reports: Hx Cardiac Catheterization - stents, Hx Orthopedic Surgery - luzmaria hip replacements/knee/ankle Review of Systems - Review of Systems Constitutional: denies: Chills, Fever Cardiovascular: denies: Chest pain, Dyspnea Respiratory: denies: Cough, Short of breath Gastrointestinal: denies: Diarrhea, Vomiting -: Yes All other systems reviewed and negative Physical Exam - Vital signs Vitals: Temp Pulse Resp BP Pulse Ox 98.2 F 138 H 15 141/79 H 96 08/05/19 14:47 08/05/19 14:47 08/05/19 14:47 08/05/19 14:47 08/05/19 14:47 Interpretation: Normal - General General appearance: Appears well, Alert - HEENT Head: Normocephalic, Atraumatic Eyes: Normal Pupils: PERRL - Respiratory Respiratory status: No respiratory distress Chest status: Nontender Breath sounds: Normal Chest palpation: Normal - Cardiovascular Rhythm: Irregularly irregular - 138 Heart sounds: Normal auscultation Murmur: No - Abdominal Inspection: Normal Distension: No distension Bowel sounds: Normal Tenderness: Nontender Organomegaly: No organomegaly - Back Back: Normal, Nontender - Extremities General upper extremity: Normal inspection, Nontender, Normal color, Normal ROM, Normal temperature General lower extremity: Normal inspection, Nontender, Normal color, Normal ROM, Normal temperature, Normal weight bearing. No: Christophe's sign - Neurological Neuro grossly intact: Yes Cognition: Confused Orientation: Disoriented to time - Patient states that it is 2019 but she is not sure which month it is Shan Coma Scale Eye Opening: Spontaneous [place] Coma Scale Verbal: Confused Shan Coma Scale Motor: Obeys Commands [place] Coma Scale Total: 14 Speech: Normal Cranial nerves: Normal Cerebellar coordination: Normal Motor strength normal: LUE, RUE, LLE, RLE Sensory: Normal - Psychological Associated symptoms: Normal affect, Normal mood - Skin Skin Temperature: Warm Skin Moisture: Dry Skin Color: Normal Course - Re-evaluation Re-evalutation: 08/05/19 19:32 I discussed the case with the patient's rn cardiac rehab Dr. Herrera. He asked me to give the patient a beta-teri and have the patient observed overnight. However patient adamantly refuses to stay overnight. Both myself and her have tried to persuade her multiple times but she is adamant that she is not going to stay. After 1 dose of metoprolol patient's heart rate is less than 120. Her blood pressure is normal at 129 systolic. She has no symptoms at this time. I would have to restrain and sedate the patient to have her admitted. I do not feel that this was a reasonable medical course for this patient. Since she is asymptomatic and has an unremarkable work-up with a heart rate less than 120 and normal blood pressure at this time I feel it is reasonable to let her go home. She will be seen by her ENT doctor tomorrow who I am sure will send her back over if her vitals are abnormal. Her is comfortable with this plan. I will discharge her with a 5-day course of once a day metoprolol 25 mg. She is going to see her rn cardiac rehab in 2 days. Obviously the best course would be to watch the patient overnight but since she refuses I feel that the best course is to allow her to be discharged rather than sedate and restrain her. - Vital Signs Vital signs: Temp Pulse Resp BP Pulse Ox 98.2 F 138 H 15 141/79 H 96 08/05/19 14:47 08/05/19 14:47 08/05/19 14:47 08/05/19 14:47 08/05/19 14:47 - Laboratory Result Diagrams: 08/05/19 15:09 08/05/19 15:09 Laboratory results interpreted by me: 08/05/19 08/05/19 15:09 15:09 MCV 100 H MCH 33.9 H RDW 15.2 H Sodium 135.9 L Est GFR ( Amer) 52 L Est GFR (MDRD) Non-Af 43 L Total Protein 6.1 L - EKG Interpretation by Me EKG shows normal: [place] Rate: Tachycardia - 130 Rhythm: A.Fib Discharge - Discharge Clinical Impression: Atrial fibrillation with rapid ventricular response Condition: Stable Disposition: HOME, SELF-CARE Instructions: Atrial Fibrillation ([facility]) Additional Instructions: Please follow-up with ENT tomorrow as instructed. please follow-up with cardiology in 2 days as instructed. Please take your prescription as instructed. Prescriptions: Metoprolol Tartrate [Lopressor 25 mg Tablet] 25 mg PO DAILY #5 tab Referrals: CORTEZ JAMES MD [Primary Care Provider] - Follow up tomorrow
[2019-08-05 19:49] VITALS: BP 131/75
== END 2019-08-05 19:40 | disposition home or self-care (01) ==
LOC: ER 14:21
DX: I48.2 Chronic atrial fibrillation (principal); R00.0 Tachycardia, unspecified; E78.00 Pure hypercholesterolemia, unspecified; Z96.643 Presence of artificial hip joint, bilateral; Z96.653 Presence of artificial knee joint, bilateral; Z96.662 Presence of left artificial ankle joint; Z96.661 Presence of right artificial ankle joint
CPT/HCPCS: 93005; 36415; 82553; 82550; 83735; 85025; 80053; 84484; 93010; J3490; 96374; 99284

== ENCOUNTER → 2019-10-04 | Outpatient (CLI) | payer MEDICARE, OTHER ==
[2019-10-04 09:49] LABS: ABSOLUTE BASOPHILS # (AUTO) 0.1 10^3/uL (0.0-0.2); ABSOLUTE EOSINOPHILS # (AUTO) 0.1 10^3/uL (0.0-0.6); ABSOLUTE LYMPHOCYTES (AUTO) 2.2 10^3/uL (0.5-4.7); ABSOLUTE MONOCYTES (AUTO) 0.7 10^3/uL (0.1-1.4); ABSOLUTE NEUT (AUTO) 5.7 10^3/uL (1.7-8.2); BASOPHILS % (AUTO) 0.7 % (0-2); EOSINOPHILS % (AUTO) 0.6 % (0-6); HEMATOCRIT 41.1 % (36.0-47.0); HEMOGLOBIN 14.3 g/dL (12.0-15.5); LYMPHOCYTES % (AUTO) 25.7 % (13-45); MEAN CORPUSCULAR HGB CONC 34.7 g/dL (32.0-36.0); MEAN CORPUSCULAR VOLUME 101 fl (80-97); MONOCYTES % (AUTO) 7.9 % (3-13); PLATELET COUNT 234 10^3/uL (150-450); RED BLOOD COUNT 4.08 10^6/uL (3.72-5.28); RED CELL DISTRIBUTION WIDTH 13.7 % (11.5-14.0); SEGMENTED NEUTROPHILS % (AUTO) 65.1 % (42-78); TOTAL CELLS COUNTED % (AUTO) 100 %; WHITE BLOOD COUNT 8.7 10^3/uL (4.0-10.5)
[2019-10-04 10:07] LABS: ALBUMIN 4.1 g/dL (3.5-5.0); ALKALINE PHOSPHATASE 38 U/L (38-126); ANION GAP 9 (5-19); ASPARTATE AMINO TRANSFERASE 27 U/L (14-36); BILIRUBIN,DIRECT 0.2 mg/dL (0.0-0.4); BLOOD UREA NITROGEN 17 mg/dL (7-20); CALCIUM 9.3 mg/dL (8.4-10.2); CARBON DIOXIDE 24 mmol/L (22-30); CHLORIDE 108 mmol/L (98-107); CHOLESTEROL 213.96 mg/dL (0-200); CREATINE KINASE 42 U/L (30-135); GLUCOSE 91 mg/dL (75-110); POTASSIUM 4.4 mmol/L (3.6-5.0); TOTAL PROTEIN 6.8 g/dL (6.3-8.2); TRIGLYCERIDES 71 mg/dL (<150)
[2019-10-04 10:18] LABS: DIRECT LDL 56 mg/dL (<100)
[2019-10-04 10:30] LABS: FREE T3 2.02 pg/mL (2.77-5.27); FREE T4 (FREE THYROXINE) 1.66 ng/dL (0.78-2.19)
[2019-10-04 10:45] LABS: THYROID STIMULATING HORMONE 2.73 uIU/mL (0.47-4.68)
== END ==
LOC: OD 09:02
PROVIDERS: ATTEND Family Medicine
DX: E55.9 Vitamin D deficiency, unspecified (principal); N18.9 Chronic kidney disease, unspecified; E03.9 Hypothyroidism, unspecified; Z79.01 Long term (current) use of anticoagulants; E78.5 Hyperlipidemia, unspecified
CPT/HCPCS: 36415; 80048; 80061; 80076; 82306; 82550; 82607; 84439; 84443; 84481; 85025

== ENCOUNTER → 2019-10-28 | Outpatient (CLI) | payer MEDICARE, OTHER ==
--- NOTE | 2019-10-28 11:26 | RADIOLOGY REPORT (SQ) ---
EXAM DESCRIPTION: DUPLEX ART/LEXY FLOW COMPLETE COMPLETED DATE/TIME: 10/28/2019 10:59 am REASON FOR STUDY: CHRONIC KIDNEY DISEASE N18.9 CHRONIC KIDNEY DISEASE, UNSPECIFIED R27.0 ATAXIA, U NSPECIFIED COMPARISON: None. TECHNIQUE: Realtime and static grayscale images acquired. Selected color Doppler, velocities and spe ctral images recorded. LIMITATIONS: None. FINDINGS: RIGHT KIDNEY: RENAL ARTERY VELOCITIES: Origin 74 Cm/sec. Mid 72 Cm/sec. Hilum 75 cm/sec Segmental artery velocit y 45 cm/sec. RENAL VEIN: Color doppler flow present, patent. VELOCITY RATIO: 1.08. Normal waveforms. KIDNEY: Normal size measuring 9.6 cm. No significant pathology. LEFT KIDNEY: RENAL ARTERY VELOCITIES: Origin not visualized. Mid 50 Cm/sec. Hilum 34 cm/sec . Segmental artery v elocity 30 cm/sec. RENAL VEIN: Color doppler flow present, patent. VELOCITY RATIO: 0.75. Normal waveforms. KIDNEY: Normal in size measuring 10.0 cm. No significant pathology. BLADDER: Normal. OTHER: Aortic velocity measures 66.7 cm/sec IMPRESSION: NO DOPPLER EVIDENCE OF HEMODYNAMICALLY SIGNIFICANT RENAL ARTERY STENOSIS. COMMENT: NORMAL RENAL ARTERY/AORTA VELOCITY RATIO IS LESS THAN OR EQUAL TO 3.5. TECHNICAL DOCUMENTATION: JOB ID: [id number] [employer]- All Rights Reserved Reading location - IP/workstation name: [email or web address]
--- NOTE | 2019-10-28 12:52 | RADIOLOGY REPORT (SQ) ---
EXAM DESCRIPTION: MRI HEAD WITHOUT COMPLETED DATE/TIME: 10/28/2019 11:21 am REASON FOR STUDY: ATAXIA, UNSPECIFIED N18.9 CHRONIC KIDNEY DISEASE, UNSPECIFIED R27.0 ATAXIA, UNSP ECIFIED COMPARISON: CT BRAIN 06/06/2019 MRI BRAIN 05/05/2016, 07/26/2013 TECHNIQUE: Multiplanar imaging includes non-contrasted T1, T2, FLAIR, and diffusion with ADC map seq uences. Images stored on PACS. LIMITATIONS: None. FINDINGS: ANATOMY: No developmental anomalies. Normal vascular flow voids. Pituitary fossa normal. CSF SPACES: Normal in size and contour. No hemorrhage. Right frontal anterior falx meningioma, 1.6 x 1.1 cm in size, stable compared to previous CT 06/06/2018. This is best shown on axial image 21 and coronal image 11. CEREBRUM: Sulci and gyri normal in size and contour. Normal white matter signal on FLAIR imaging. No evidence of hemorrhage, mass, or extraaxial fluid collection. POSTERIOR FOSSA: No signal alteration. No hemorrhage. No edema, masses or mass effect. Internal franco tory canals, cerebello-pontine angles, mastoids normal. DIFFUSION IMAGING: Negative for acute or sub-acute infarction. ORBITS: No masses. Post right cataract surgery. PARANASAL SINUSES: No fluid levels. Mucosa normal. OTHER: No other significant finding. IMPRESSION: Stable small meningioma anterior right falx. No MR evidence of acute ischemic change, intracranial hemorrhage, significant mass effect or midline shift. EVIDENCE OF ACUTE STROKE: NO. TECHNICAL DOCUMENTATION: JOB ID: [id number] [employer]- All Rights Reserved Reading location - IP/workstation name: [email or web address]
== END ==
LOC: RAD 09:59
PROVIDERS: ATTEND Family Medicine
DX: N18.9 Chronic kidney disease, unspecified (principal); R27.0 Ataxia, unspecified; D32.9 Benign neoplasm of meninges, unspecified
CPT/HCPCS: 70551; 93975

== ENCOUNTER → 2019-11-21 | Outpatient (CLI) | payer MEDICARE, OTHER ==
[2019-11-21 09:44] LABS: ABSOLUTE BASOPHILS # (AUTO) 0.1 10^3/uL (0.0-0.2); ABSOLUTE LYMPHOCYTES (AUTO) 2.1 10^3/uL (0.5-4.7); ABSOLUTE MONOCYTES (AUTO) 0.7 10^3/uL (0.1-1.4); ABSOLUTE NEUT (AUTO) 3.1 10^3/uL (1.7-8.2); BASOPHILS % (AUTO) 0.9 % (0-2); EOSINOPHILS % (AUTO) 0.5 % (0-6); HEMATOCRIT 39.8 % (36.0-47.0); HEMOGLOBIN 13.5 g/dL (12.0-15.5); LYMPHOCYTES % (AUTO) 34.8 % (13-45); MEAN CORPUSCULAR HEMOGLOBIN 34.1 pg (27.0-33.4); MEAN CORPUSCULAR HGB CONC 33.9 g/dL (32.0-36.0); MEAN CORPUSCULAR VOLUME 100 fl (80-97); PLATELET COUNT 226 10^3/uL (150-450); RED BLOOD COUNT 3.97 10^6/uL (3.72-5.28); RED CELL DISTRIBUTION WIDTH 15.4 % (11.5-14.0); SEGMENTED NEUTROPHILS % (AUTO) 51.8 % (42-78); TOTAL CELLS COUNTED % (AUTO) 100 %
[2019-11-21 09:49] LABS: INTERNATIONAL RATION (INR) 1.41; PROTHROMBIN TIME 17.4 SEC (11.4-15.4)
[2019-11-21 10:11] LABS: ANION GAP 7 (5-19); BLOOD UREA NITROGEN 11 mg/dL (7-20); CARBON DIOXIDE 29 mmol/L (22-30); CHLORIDE 100 mmol/L (98-107); GLUCOSE 90 mg/dL (75-110); POTASSIUM 4.4 mmol/L (3.6-5.0)
== END ==
LOC: OD 08:41
PROVIDERS: ATTEND Obstetrics & Gynecology
DX: I48.0 Paroxysmal atrial fibrillation (principal)
CPT/HCPCS: 36415; 80048; 83735; 85025; 85610

== ENCOUNTER → 2020-01-07 | Outpatient (CLI) | payer MEDICARE, OTHER ==
[2020-01-07 10:40] LABS: ABSOLUTE BASOPHILS # (AUTO) 0.1 10^3/uL (0.0-0.2); ABSOLUTE EOSINOPHILS # (AUTO) 0.1 10^3/uL (0.0-0.6); ABSOLUTE LYMPHOCYTES (AUTO) 2.3 10^3/uL (0.5-4.7); ABSOLUTE MONOCYTES (AUTO) 0.6 10^3/uL (0.1-1.4); ABSOLUTE NEUT (AUTO) 4.1 10^3/uL (1.7-8.2); BASOPHILS % (AUTO) 1.2 % (0-2); HEMATOCRIT 39.6 % (36.0-47.0); HEMOGLOBIN 13.8 g/dL (12.0-15.5); LYMPHOCYTES % (AUTO) 32.1 % (13-45); MEAN CORPUSCULAR HEMOGLOBIN 34.3 pg (27.0-33.4); MEAN CORPUSCULAR VOLUME 98 fl (80-97); MONOCYTES % (AUTO) 8.3 % (3-13); PLATELET COUNT 195 10^3/uL (150-450); RED BLOOD COUNT 4.03 10^6/uL (3.72-5.28); RED CELL DISTRIBUTION WIDTH 13.7 % (11.5-14.0); SEGMENTED NEUTROPHILS % (AUTO) 57.4 % (42-78); TOTAL CELLS COUNTED % (AUTO) 100 %; WHITE BLOOD COUNT 7.1 10^3/uL (4.0-10.5)
[2020-01-07 11:04] LABS: ANION GAP 9 (5-19); BLOOD UREA NITROGEN 13 mg/dL (7-20); CALCIUM 9.1 mg/dL (8.4-10.2); CARBON DIOXIDE 27 mmol/L (22-30); CHLORIDE 100 mmol/L (98-107); GLUCOSE 102 mg/dL (75-110); POTASSIUM 4.5 mmol/L (3.6-5.0)
== END ==
LOC: OD 09:35
PROVIDERS: ATTEND Family Medicine
DX: N18.9 Chronic kidney disease, unspecified (principal); E53.8 Deficiency of other specified B group vitamins; E03.9 Hypothyroidism, unspecified
CPT/HCPCS: 36415; 80048; 82607; 83735; 84443; 85025

== ENCOUNTER → 2020-01-23 | Outpatient (CLI) | payer MEDICARE, OTHER ==
--- NOTE | 2020-01-23 16:02 | RADIOLOGY REPORT (SQ) ---
EXAM DESCRIPTION: CHEST PA/LATERAL COMPLETED DATE/TIME: 01/23/2020 2:12 pm REASON FOR STUDY: WHEEZING COMPARISON: None. EXAM PARAMETERS: NUMBER OF VIEWS: two views TECHNIQUE: Digital Frontal and Lateral radiographic views of the chest acquired. RADIATION DOSE: NA LIMITATIONS: none FINDINGS: LUNGS AND PLEURA: Hyperexpansion of the lungs. No infiltrate, effusion, or mass. MEDIASTINUM AND HILAR STRUCTURES: No masses or contour abnormalities. HEART AND VASCULAR STRUCTURES: Heart normal size. No evidence for failure. BONES: No acute findings. HARDWARE: Loop recorder. OTHER: No other significant finding. IMPRESSION: Chronic lung changes. No acute cardiopulmonary finding. TECHNICAL DOCUMENTATION: JOB ID: [id number] [employer]- All Rights Reserved Reading location - IP/workstation name: [email or web address]
== END ==
LOC: RAD 14:03
PROVIDERS: ATTEND Family Medicine
DX: R06.2 Wheezing (principal)
CPT/HCPCS: 71046

== ENCOUNTER → 2020-10-20 | Outpatient (CLI) | payer MEDICARE, OTHER ==
[2020-10-20 09:20] LABS: ABSOLUTE BASOPHILS # (AUTO) 0.1 10^3/uL (0.0-0.2); ABSOLUTE EOSINOPHILS # (AUTO) 0.4 10^3/uL (0.0-0.6); ABSOLUTE LYMPHOCYTES (AUTO) 1.9 10^3/uL (0.5-4.7); ABSOLUTE MONOCYTES (AUTO) 0.7 10^3/uL (0.1-1.4); ABSOLUTE NEUT (AUTO) 3.7 10^3/uL (1.7-8.2); BASOPHILS % (AUTO) 1.1 % (0-2); HEMATOCRIT 39.3 % (36.0-47.0); HEMOGLOBIN 13.4 g/dL (12.0-15.5); LYMPHOCYTES % (AUTO) 27.6 % (13-45); MEAN CORPUSCULAR HGB CONC 34.1 g/dL (32.0-36.0); MEAN CORPUSCULAR VOLUME 97 fl (80-97); MONOCYTES % (AUTO) 9.7 % (3-13); PLATELET COUNT 208 10^3/uL (150-450); RED BLOOD COUNT 4.05 10^6/uL (3.72-5.28); RED CELL DISTRIBUTION WIDTH 14.6 % (11.5-14.0); SEGMENTED NEUTROPHILS % (AUTO) 55.6 % (42-78); TOTAL CELLS COUNTED % (AUTO) 100 %; WHITE BLOOD COUNT 6.7 10^3/uL (4.0-10.5)
[2020-10-20 09:37] LABS: ALBUMIN 4.4 g/dL (3.5-5.0); ALKALINE PHOSPHATASE 98 U/L (38-126); ANION GAP 10 (5-19); ASPARTATE AMINO TRANSFERASE 33 U/L (14-36); BILIRUBIN,DIRECT 0.1 mg/dL (0.0-0.4); BILIRUBIN,TOTAL 0.9 mg/dL (0.2-1.3); BLOOD UREA NITROGEN 14 mg/dL (7-20); CALCIUM 9.3 mg/dL (8.4-10.2); CARBON DIOXIDE 24 mmol/L (22-30); CHLORIDE 101 mmol/L (98-107); CHOLESTEROL 210.93 mg/dL (0-200); GLUCOSE 93 mg/dL (75-110); POTASSIUM 4.6 mmol/L (3.6-5.0); TOTAL PROTEIN 6.7 g/dL (6.3-8.2); TRIGLYCERIDES 64 mg/dL (<150)
[2020-10-20 09:48] LABS: DIRECT LDL 34 mg/dL (<100)
[2020-10-20 09:54] LABS: FREE T4 (FREE THYROXINE) 2.01 ng/dL (0.78-2.19)
[2020-10-20 10:07] LABS: THYROID STIMULATING HORMONE 2.4 uIU/mL (0.47-4.68)
== END ==
LOC: OD 08:27
PROVIDERS: ATTEND Family Medicine
DX: E03.9 Hypothyroidism, unspecified (principal); Z79.01 Long term (current) use of anticoagulants; E53.8 Deficiency of other specified B group vitamins; E55.9 Vitamin D deficiency, unspecified; E78.5 Hyperlipidemia, unspecified; Z79.899 Other long term (current) drug therapy
CPT/HCPCS: 36415; 80053; 80061; 82306; 82607; 84439; 84443; 85025